=== PATIENT | female | born 1995 | race Caucasian/White ===

== ENCOUNTER → 2018-05-05 00:11 | Observation (INO) ==
[2018-05-04 22:59] LABS: Bilirubin,Urine Small (Negative); Blood,Urine Negative (Negative); Clarity,Urine Clear (Clear); Color,Urine Dark Yellow (Yellow); Glucose,Urine (UA) Normal (Normal); Ketones,Urine 15 mg/dL (Negative); Leukocyte Esterase,Urine Trace (Negative); Nitrite,Urine Negative (Negative); Protein,Urine 30 mg/dL (Neg-Trace); Specific Gravity,Urine 1.024 (1.010-1.025); Urobilinogen,Urine Normal (Normal)
[2018-05-04 23:04] LABS: Bacteria,Urine Few per hpf (None-Few); Hyaline Casts,Urine Few per lpf (None-Few); RBC,Urine 0-3 per hpf (0-3); Squamous Epithelial Cell,Urine Many per lpf (None-Few)
[2018-05-04 23:11] LABS: Amphetamine Screen,Urine Negative ng/mL (Cutoff=1000); Barbiturate Screen,Urine Negative ng/mL (Cutoff=200); Benzodiazepines Screen,Urine Negative ng/mL (Cutoff=200); Cannabinoid Screen,Urine Positive ng/mL (Cutoff = 50); Cocaine Screen,Urine Negative ng/mL (Cutoff= 300); Opiate Screen,Urine Negative ng/mL (Cutoff=300); Phencyclidine Screen,Urine Negative ng/mL (Cutoff=25)
[2018-05-04 23:53] LABS: Gardnerella DNA Not Detected (Not Detect); Trichomonas DNA Not Detected (Not Detect)
[2018-05-04 23:54] LABS: Candida DNA Not Detected (Not Detect)
--- NOTE | 2018-05-04 23:59 | OB/GYN Progress Note ---
Date of Encounter: 05/04/18 Time of Encounter: 23:56 - Assessment and Plan (1) 33 weeks gestation of Current Visit: Yes Status: Acute Follow up with Dr. Amaro as scheduled PTL precautions given Discharge home (2) Vaginal discharge during in third trimester Current Visit: Yes Status: Acute Vaginosis panel negative Nitrazine negative Likely normal increase in discharge during Subjective - Subjective Principal diagnosis: Vaginal discharge during Interval history: Ms. Nunn is a 22 year old at 33 weeks gestation who presents c/o leaking fluid starting today. She reports good movement and denies ctx, vb. She states she fluid is mostly odorless and clear. Last intercourse was more than 48 hours ago. Antepartum ROS: new complaints, loss of fluid, movement normal, no vaginal bleeding, no contractions Objective - Vital Signs Vital Signs: Intake and Output 05/04/18 05/04/18 05/04/18 07:59 15:59 23:59 Other: Weight 75.9 kg Patient Weight 05/04/18 23:59 Weight 75.9 kg - Exam FHR: category 1 Auscultation: bilateral: normal Abdomen: Present: normal appearance, soft, gravid Uterus: Present: normal, firm - Labs Labs: Abnormal lab results Urine Protein 30 mg/dL (Neg-Trace) H 05/04/18 22:48 Urine Ketones 15 mg/dL (Negative) H 05/04/18 22:48 Urine Bilirubin Small (Negative) H 05/04/18 22:48 Ur Leukocyte Esterase Trace (Negative) H 05/04/18 22:48 Urine Microscopic WBC 5-15 per hpf (0-3) H 05/04/18 22:48 Ur Squamous Epith Cells Many per lpf (None-Few) H 05/04/18 22:48 U Marijuana (THC) Screen Positive ng/mL (Cutoff = 50) H 05/04/18 22:48
== END | disposition home or self-care (01) ==
LOC: 1NENULAB
PROVIDERS: ADMIT Obstetrics & Gynecology; ATTEND Obstetrics & Gynecology

== ENCOUNTER 2018-06-12 05:12 | Inpatient (IN) ==
[2018-06-12] MEDS ORDERED: Metoclopramide 10 MG/2 ML VIAL IVP PRN (05:23)
[2018-06-12] MEDS ORDERED: *HR* Nalbuphine 10 MG/ML AMPUL IVP PRN (05:23)
[2018-06-12] MEDS ORDERED: Ondansetron 4 MG/2 ML VIAL IVP PRN (05:23)
[2018-06-12] MEDS ORDERED: Naloxone 0.4 MG/ML INJ IVP PRN (05:23)
[2018-06-12] MEDS ORDERED: Lidocaine 1% 20 ML MDV ID PRN (05:23)
[2018-06-12] MEDS ORDERED: Famotidine 20 MG/2 ML VIAL IVP PRN (05:23)
[2018-06-12] MEDS ORDERED: Ringers Solution, Lactated 1,000 ML ONE (05:27)
[2018-06-12] MEDS ORDERED: Ringers Solution, Lactated 1,000 ML IVC SCH (05:30)
[2018-06-12 05:47] LABS: Basophils # 0.2 K/mcL (0.0-0.2); Eosinophils # 0.3 K/mcL (0.0-0.6); Eosinophils % 1.9 %; Hematocrit 39.3 % (35.3-44.9); Hemoglobin 13.3 g/dL (11.5-15.4); Immature Granulocytes % 2.8 % (0-4); Lymphocytes # 2.9 K/mcL (0.6-4.6); Lymphocytes % 18.1 %; Mean Corpuscular HGB Conc 33.8 g/dL (31.6-35.5); Mean Corpuscular Hemoglobin 30.4 pg (28.0-33.3); Mean Corpuscular Volume 89.9 fL (83.0-100.0); Mean Platelet Volume 10.4 fL (9.4-12.4); Monocytes # 1.1 K/mcL (0.0-1.3); Monocytes % 6.9 %; Neutrophils # 11.1 K/mcL (1.6-8.9); Platelet Count 287 K/mcL (140-400); Red Blood Count 4.37 M/mcL (3.82-4.97); Red Cell Distribution Width 13.2 % (11.5-14.5); Segmented Neutrophils % 69.3 %
[2018-06-12] MEDS ORDERED: Oxytocin 20 units/ LR 1000 mL 20 UNIT/1,000 ML BAG IVC ONE (06:00)
--- NOTE | 2018-06-12 06:30 | OB/GYN Procedure Note ---
Delivery - Delivery Date: 06/12/18 Provider: Ericka Canas Intrapartum events: precipitous labor- <3hr Delivery induction: none Delivery monitor: external FHT, external uterine Anesthesia: local - Infant (s) A Delivery Date: 06/12/18 Delivery Time: 05:57 Presentation: vertex Position: OA Route of delivery: Gender: Female Pounds: 5 Ounces: 14 Weight Gram: 2660 kg at 1 minute: 8 at 5 mins: 9 Shoulder Dystocia: not encountered Specimens collected: cord blood Placenta: spontaneous - Repair Episiotomy: none Laceration Description: Perineal - 2nd Degree - Complications Delivery complications: none Delivery comments: Admitted in spontaneous labor and rapidly progressed to complete. Maternal bearing down efforts to of liveborn female. Vertex delivered OA, shoulders and body easily followed. No nuchal cord or shoulder dystocia encountered. Vigorous placed on maternal abdomen Apgars 8/9. Placenta delivered spontaneously (Eufemia) and complete upon inspection. Fundus massaged until firm and Pitocin started per policy. Deep perineal laceration noted, Dr. Reed called to repair and evaluate perineal laceration. - Disposition Mom disposition: stable in LDR [place] disposition: stable in LDR
--- NOTE | 2018-06-12 06:44 | OB/GYN History & Physical ---
Date of Encounter: 06/12/18 Time of Encounter: 06:31 Assessment and Plan (1) 38 weeks gestation of Current visit: Yes Status: Acute (2) Spontaneous onset of labor Current visit: Yes Status: Acute Admitted to labor and delivery Vaginal delivery of Routine care History of Present Illness HPI: Ms. Nunn is a 22 year old female 38+6 gestation presents L&D in spontaneous labor. Patient with contractions and spontaneous rupture membranes at home. Reports good movement. care with Dr. Amaro, complicated with tick bite and infection. Past medical history includes cellulitis infection and arm with DVT, anxiety and depression, hemachromatosis, Labs: AB+, rubella varicella immune, GBS positive, all other serologies negative Past Med Surg Social Fam HX - Past Medical History Medical history: asthma, DVT, seizures, other Additional medical history: Gum abscess Psychiatric history: anxiety, depression - Past Surgical History Surgical History: other Additional surgical history: T&A, oral surgeries - Social History Smoking Status: Former smoker Smokeless Tobacco Status: No Alcohol use: none Drug use: marijuana - Family History Mother Adopted: No Family Member Ethnicity: Non- Living Status: Still Living Hx Family Cardiac Disorders: Yes (artial septum) Hx Family Respiratory Disorders: No Hx Family Cancer: No Hx Family GI Disorders: No Hx Family Genitourinary Disorders: No Hx Family Endocrine Disorder: No Hx Family Musculoskeletal Disorders: No Hx Family Neuromuscular Disorders: No Hx Family Neurologic Disorders: No Hx Family HEENT Disorders: No Hx Family Autoimmune Disorders: No Hx Family Reproductive Disorders: No Hx Family Psychosocial Disorders: No Hx Family Medical Disorders: (fibromyalgia) Father Family Member Ethnicity: Non- Living Status: Still Living Hx Family Cardiac Disorders: No Hx Family Respiratory Disorders: No Hx Family Cancer: No Hx Family GI Disorders: No Hx Family Genitourinary Disorders: No Hx Family Endocrine Disorder: No Hx Family Musculoskeletal Disorders: No Hx Family Neuromuscular Disorders: No Hx Family Neurologic Disorders: No Hx Family HEENT Disorders: No Hx Family Autoimmune Disorders: No Hx Family Reproductive Disorders: No Hx Family Psychosocial Disorders: No Hx Family Medical Disorders: (Hemachromitosis) Obstetrical History - Pregnancies : 2 Para: 1 Term: 1 : 0 Ab's: 0 Livin Medications and Allergies Albuterol Sulfate [Proair Hfa] 2 puff IH Q6H PRN 05/05/16 [History] Ondansetron HCl [Zofran] 4 mg PO Q8HR PRN 04/30/18 [History] Pnv No.122/Iron/Folic Acid [ Multi Tablet] 1 each PO DAILY 04/30/18 [ History] Ferrous Sulfate [Iron] 1 tab PO DAILY 05/04/18 [History] 3 Allergy/AdvReac Type Severity Reaction Status Date / Time ampicillin [From Unasyn] Allergy Rash Verified 06/12/18 05:21 chlorhexidine Allergy Rash Verified 06/12/18 05:21 citalopram [From Celexa] Allergy Agitated Verified 06/12/18 05:21 sulbactam [From Unasyn] Allergy Rash Verified 06/12/18 05:21 Exam - Constitutional Constitutional: well developed, well nourished, no acute distress, average body habitus - Neck Neck exam: full ROM - Lungs Respiratory exam: CTAB - Cardiovascular Cardiovascular exam: RRR - Abdomen Abdomen: Present: gravid, non tender - Extremities Extremities exam: normal capillary refill, normal inspection Results Result Diagrams: 06/12/18 05:29 Abnormal lab results WBC 16.0 K/mcL (4.3-11.1) H 06/12/18 05:29 Neutrophils # 11.1 K/mcL (1.6-8.9) H 06/12/18 05:29 All other labs normal.
--- NOTE | 2018-06-12 07:18 | OB/GYN History & Physical ---
Addendum entered and electronically signed by Suhail Grace DO 06/12/18 14:08: Take Factor V Leiden off of Problem list of patient as this was subjectively reported by the patient. Add diagnosis of Hx of VTE. Take Factor V Leiden off of plan as well. Original Note: Date of Encounter: 06/13/18 Time of Encounter: 05:18 Assessment and Plan (1) Spontaneous onset of labor Current visit: Yes Status: Acute Admit to labor and delivery Spontaneous vaginal delivery anticipated Continuous monitoring GBS: positive Consult to Heme/Onc for management of Hx of Factor V Leiden in the setting of provoked VTE and Hemochromatosis gene. Dr Jade stated to provide patient with 40 mg of Lovenox for prophylactic therapy. Stated that he would agree to accept consult of patient on the floor. (2) 38 weeks gestation of Current visit: Yes Status: Acute (3) Factor V Leiden Current visit: Yes Status: Acute (4) Hemochromatosis carrier Current visit: Yes Status: Acute History of Present Illness Chief complaint: SROM HPI: Ms. Nunn is a 22 year old female Ms. Nunn is a 22 year old female 38+6 gestation presents L&D in spontaneous labor. Patient with contractions and spontaneous rupture membranes at home. Reports good movement. care with Dr. Amaro. Patient reports history of factor V Leiden deficiency. 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 Reports not having any other blood clots. Reports extensive anticoagulation for one year and a half. Has not been on any anticoagulation since. Has not been on any anticoagulation throughout her . Patient also reports history of hemachromatosis. 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 Reports never requiring a phlebotomy. Labs: AB+, rubella varicella immune, GBS positive, all other serologies negative Past Med Surg Social Fam HX - Past Medical History Medical history: asthma, DVT, seizures, other Additional medical history: Gum abscess Psychiatric history: anxiety, depression - Past Surgical History Surgical History: other Additional surgical history: T&A, oral surgeries - Social History Smoking Status: Former smoker Smokeless Tobacco Status: No Alcohol use: none Drug use: marijuana - Family History Mother Adopted: No Family Member Ethnicity: Non- Living Status: Still Living Hx Family Cardiac Disorders: Yes (artial septum) Hx Family Respiratory Disorders: No Hx Family Cancer: No Hx Family GI Disorders: No Hx Family Genitourinary Disorders: No Hx Family Endocrine Disorder: No Hx Family Musculoskeletal Disorders: No Hx Family Neuromuscular Disorders: No Hx Family Neurologic Disorders: No Hx Family HEENT Disorders: No Hx Family Autoimmune Disorders: No Hx Family Reproductive Disorders: No Hx Family Psychosocial Disorders: No Hx Family Medical Disorders: (fibromyalgia) Father Family Member Ethnicity: Non- Living Status: Still Living Hx Family Cardiac Disorders: No Hx Family Respiratory Disorders: No Hx Family Cancer: No Hx Family GI Disorders: No Hx Family Genitourinary Disorders: No Hx Family Endocrine Disorder: No Hx Family Musculoskeletal Disorders: No Hx Family Neuromuscular Disorders: No Hx Family Neurologic Disorders: No Hx Family HEENT Disorders: No Hx Family Autoimmune Disorders: No Hx Family Reproductive Disorders: No Hx Family Psychosocial Disorders: No Hx Family Medical Disorders: (Hemachromitosis) Obstetrical History - Pregnancies : 2 Para: 1 Term: 1 : 0 Ab's: 0 Livin Medications and Allergies Albuterol Sulfate [Proair Hfa] 2 puff IH Q6H PRN 05/05/16 [History] Ondansetron HCl [Zofran] 4 mg PO Q8HR PRN 04/30/18 [History] Pnv No.122/Iron/Folic Acid [ Multi Tablet] 1 each PO DAILY 04/30/18 [ History] Ferrous Sulfate [Iron] 1 tab PO DAILY 05/04/18 [History] 3 Allergy/AdvReac Type Severity Reaction Status Date / Time ampicillin [From Unasyn] Allergy Rash Verified 06/12/18 05:21 chlorhexidine Allergy Rash Verified 06/12/18 05:21 citalopram [From Celexa] Allergy Agitated Verified 06/12/18 05:21 sulbactam [From Unasyn] Allergy Rash Verified 06/12/18 05:21 Review of System OB All systems PM: reviewed and no additional remarkable complaints except as stated - Constitutional Constitutional ROS IM: no fever(s) Exam - Constitutional Constitutional: well developed, well nourished, no acute distress - HEENT HEENT: Normocephaly - Lungs Respiratory exam: CTAB - Cardiovascular Cardiovascular exam: RRR, +S1, +S2 - Abdomen Abdomen: Present: gravid, non tender - Extremities Extremities exam: normal inspection Results Result Diagrams: 06/13/18 02:19 Abnormal lab results WBC 16.0 K/mcL (4.3-11.1) H 06/12/18 05:29 Neutrophils # 11.1 K/mcL (1.6-8.9) H 06/12/18 05:29 All other labs normal. - Attending Attestation Chance Reed MD , FACOG
[2018-06-12 07:29] LABS: Amphetamine Screen,Urine Negative ng/mL (Cutoff=1000); Barbiturate Screen,Urine Negative ng/mL (Cutoff=200); Benzodiazepines Screen,Urine Negative ng/mL (Cutoff=200); Cannabinoid Screen,Urine Negative ng/mL (Cutoff = 50); Cocaine Screen,Urine Negative ng/mL (Cutoff= 300); Opiate Screen,Urine Negative ng/mL (Cutoff=300); Phencyclidine Screen,Urine Negative ng/mL (Cutoff=25)
[2018-06-12] MEDS ORDERED: *HR* Enoxaparin 40 MG/0.4 ML SYRINGE SQ ONE ×2 (07:41→10:00)
[2018-06-12] MEDS ORDERED: Oxytocin 20 units/ LR 1000 mL 20 UNIT/1,000 ML BAG IVC SCH (10:00)
[2018-06-12] MEDS ORDERED: Lanolin 7 G OINT...G. TP PRN (10:00)
[2018-06-12] MEDS ORDERED: *HR* HYDROcodone/Acet 5/325 mg TABLET PO PRN (10:00)
[2018-06-12] MEDS ORDERED: Benzocaine/Menthol 56 GM AEROSOL SPRAY TP PRN (10:00)
[2018-06-12] MEDS ORDERED: Acetaminophen 325 MG TABLET PO PRN (10:00)
[2018-06-12] MEDS: Prenatal Vit/FA 1 EACH TABLET PO SCH (11:33)
--- NOTE | 2018-06-12 13:59 | Oncology Inp Consult Note ---
<Henok Lobato - Last Filed: 06/12/18 16:20> Date of Encounter: 06/12/18 Time of Encounter: 13:58 Assessment and Plan (1) History of DVT (deep vein thrombosis) Status: Acute Assessment and plan: Patient had single provoked upper extremity DVT in the setting of PICC line in place several years ago. No other history of DVT. Patient denies any history of coagulopathy or family history of blood clotting disorders. Given that the patient's DVT was clearly provoked by a PICC line and has no other clotting history, we will not start the patient on prophylactic anticoagulation in the period. (2) Hemochromatosis carrier Status: Acute Assessment and plan: History of C282Y heterozygous mutation - Data of Consult Patient: known to practice within the last 3 years Consult date: 06/12/18 Requesting Physician: Ericka Canas CNM Primary Care Provider: Anthony Cedillo MD - Consult Narrative Reason for consult: hx of DVT/post History of present illness: Ms. Nunn is a 22 year old female with history of provoked upper extremity DVT after PICC line, heterozygous C282Y mutation who presented for normal vaginal delivery. Patient reports that she had an uneventful delivery with no bleeding issues. Hematology was consulted due to history of upper extremity DVT after PICC line placement. Patient states that this is the only DVT that she has ever had. She has no other history of clotting issues. She denies family history of clotting disorders. She does report that her father has hemachromatosis. Patient was treated with Xarelto after her upper extremity DVT. She denies any extremity pain, swelling, erythema. She denies chest pain, shortness of breath. Past Med Surg Social Fam HX - Past Medical History Medical history: asthma, DVT, seizures, other Additional medical history: Gum abscess Psychiatric history: anxiety, depression - Past Surgical History Surgical History: other Additional surgical history: T&A, oral surgeries - Social History Smoking Status: Former smoker Smokeless Tobacco Status: No Alcohol use: none Drug use: marijuana - Family History Mother Adopted: No Family Member Ethnicity: Non- Living Status: Still Living Hx Family Cardiac Disorders: Yes (artial septum) Hx Family Respiratory Disorders: No Hx Family Cancer: No Hx Family GI Disorders: No Hx Family Genitourinary Disorders: No Hx Family Endocrine Disorder: No Hx Family Musculoskeletal Disorders: No Hx Family Neuromuscular Disorders: No Hx Family Neurologic Disorders: No Hx Family HEENT Disorders: No Hx Family Autoimmune Disorders: No Hx Family Reproductive Disorders: No Hx Family Psychosocial Disorders: No Hx Family Medical Disorders: (fibromyalgia) Father Family Member Ethnicity: Non- Living Status: Still Living Hx Family Cardiac Disorders: No Hx Family Respiratory Disorders: No Hx Family Cancer: No Hx Family GI Disorders: No Hx Family Genitourinary Disorders: No Hx Family Endocrine Disorder: No Hx Family Musculoskeletal Disorders: No Hx Family Neuromuscular Disorders: No Hx Family Neurologic Disorders: No Hx Family HEENT Disorders: No Hx Family Autoimmune Disorders: No Hx Family Reproductive Disorders: No Hx Family Psychosocial Disorders: No Hx Family Medical Disorders: (Hemachromitosis) Medications and Allergies Albuterol Sulfate [Proair Hfa] 2 puff IH Q6H PRN 05/05/16 [History] Ondansetron HCl [Zofran] 4 mg PO Q8HR PRN 04/30/18 [History] Pnv No.122/Iron/Folic Acid [ Multi Tablet] 1 each PO DAILY 04/30/18 [ History] Ferrous Sulfate [Iron] 1 tab PO DAILY 05/04/18 [History] 3 Allergy/AdvReac Type Severity Reaction Status Date / Time ampicillin [From Unasyn] Allergy Rash Verified 06/12/18 05:21 chlorhexidine Allergy Rash Verified 06/12/18 05:21 citalopram [From Celexa] Allergy Agitated Verified 06/12/18 05:21 sulbactam [From Unasyn] Allergy Rash Verified 06/12/18 05:21 All systems: reviewed and no additional remarkable complaints except as stated Oncology - Exam - Constitutional Vitals: Temp Pulse Resp BP Pulse Ox 97.6 F 68 16 110/64 99 06/12/18 10:09 06/12/18 10:09 06/12/18 10:09 06/12/18 10:09 06/12/18 10:09 General appearance: cooperative, no acute distress - Head Head exam: Present: atraumatic, normal inspection, normocephalic - Respiratory Respiratory exam: Present: CTAB. Absent: rales, rhonchi, wheezes - Cardiovascular Cardiovascular exam: Present: RRR. Absent: diastolic murmur, systolic murmur - GI/Abdominal GI/Abdominal exam: Present: normal bowel sounds, soft. Absent: tenderness - Extremities Exam Extremities exam: Absent: pedal edema, tenderness - Neurological Exam Neurological exam: Present: alert, oriented X3 - Skin Skin exam: Present: dry, intact, warm Oncology - Results Labs: 3 06/12/18 06/12/18 05:29 05:29 WBC 16.0 H RBC 4.37 Hgb 13.3 Hct 39.3 MCV 89.9 MCH 30.4 MCHC 33.8 RDW 13.2 Plt Count 287 MPV 10.4 Immature Gran % 2.8 Seg Neutrophils % 69.3 Lymphocytes % 18.1 Monocytes % 6.9 Eosinophils % 1.9 Basophils % 1.0 Neutrophils # 11.1 H Lymphocytes # 2.9 Monocytes # 1.1 Eosinophils # 0.3 Basophils # 0.2 Urine Opiates Screen Negative Ur Barbiturates Screen Negative Ur Phencyclidine Scrn Negative Ur Amphetamines Screen Negative U Benzodiazepines Scrn Negative Urine Cocaine Screen Negative U Marijuana (THC) Screen Negative Ur Drug Screen Interp See Below Consult Discharge Plan - Plan Referrals: Anthony Cedillo MD [Primary Care Provider] - <Ulysses Boateng - Last Filed: 06/12/18 16:39> Date of Encounter: 06/12/18 - Data of Consult Requesting Physician: Ericka Canas CNM Primary Care Provider: Anthony Cedillo MD - Consult Narrative History of present illness: Ms. Nunn is a 22 year old female with history of PICC line thrombosis, precipitating event. She does not have any prior thrombotic episodes or family history of thrombosis. She does not need any prophylaxis given her history, after normal vaginal delivery, with planned discharge home tomorrow. Plan of care discussed with patient and family. I examined this patient and my medical decision-making was reviewed with Dr. Henok Lobato. I agree with the documented findings, disposition and treatment plan as described except to the extent set forth below. Oncology - Exam - Constitutional Vitals: Temp Pulse Resp BP Pulse Ox 98.7 F 79 16 128/73 99 06/12/18 15:38 06/12/18 15:38 06/12/18 15:38 06/12/18 15:38 06/12/18 10:09 Oncology - Results Labs: 3 06/12/18 06/12/18 05:29 05:29 WBC 16.0 H RBC 4.37 Hgb 13.3 Hct 39.3 MCV 89.9 MCH 30.4 MCHC 33.8 RDW 13.2 Plt Count 287 MPV 10.4 Immature Gran % 2.8 Seg Neutrophils % 69.3 Lymphocytes % 18.1 Monocytes % 6.9 Eosinophils % 1.9 Basophils % 1.0 Neutrophils # 11.1 H Lymphocytes # 2.9 Monocytes # 1.1 Eosinophils # 0.3 Basophils # 0.2 Urine Opiates Screen Negative Ur Barbiturates Screen Negative Ur Phencyclidine Scrn Negative Ur Amphetamines Screen Negative U Benzodiazepines Scrn Negative Urine Cocaine Screen Negative U Marijuana (THC) Screen Negative Ur Drug Screen Interp See Below - Attending Attestation I examined this patient and my medical decision-making was reviewed with resident physician Dr Henok Lobato. I agree with the documented findings, disposition and treatment plan as described except to the extent set forth below. Inpatient Charges Provider: Dr. Virgen Boateng Consult Charges: [id number]
[2018-06-12] MEDS: Ibuprofen 600 MG TABLET PO PRN (19:11)
[2018-06-13 03:08] LABS: Basophils # 0.1 K/mcL (0.0-0.2); Basophils % 0.7 %; Eosinophils # 0.3 K/mcL (0.0-0.6); Eosinophils % 1.5 %; Hematocrit 35.9 % (35.3-44.9); Hemoglobin 12.4 g/dL (11.5-15.4); Immature Granulocytes % 2.2 % (0-4); Lymphocytes # 3.4 K/mcL (0.6-4.6); Lymphocytes % 18.5 %; Mean Corpuscular HGB Conc 34.5 g/dL (31.6-35.5); Mean Corpuscular Hemoglobin 31.6 pg (28.0-33.3); Mean Corpuscular Volume 91.6 fL (83.0-100.0); Mean Platelet Volume 10.8 fL (9.4-12.4); Monocytes # 1.1 K/mcL (0.0-1.3); Monocytes % 6.1 %; Neutrophils # 13.2 K/mcL (1.6-8.9); Platelet Count 258 K/mcL (140-400); Red Blood Count 3.92 M/mcL (3.82-4.97); Red Cell Distribution Width 13.2 % (11.5-14.5)
[2018-06-13] MEDS: Ibuprofen 600 MG TABLET PO PRN (06:54)
[2018-06-13 08:02] VITALS: BP 122/77
[2018-06-13] MEDS: Prenatal Vit/FA 1 EACH TABLET PO SCH (08:19)
--- NOTE | 2018-06-13 10:29 | Discharge Summary ---
Date of Encounter: 06/13/18 Time of Encounter: 10:26 - Discharge Diagnosis (1) Vaginal delivery Priority: Primary Status: Acute Comments: Pain well controlled with by mouth pain meds Tolerating regular diet Ambulating independently Voiding independently Passing flatus, no BM yet Lochia light Discharge home today (2) Breast feeding status of mother Priority: Secondary Status: Acute Comments: Community resources provided - Discharge Medications Prescriptions: Ibuprofen [Motrin] 600 mg PO Q6HR PRN #30 tablet PRN Reason: Cramping Docusate [Colace] 100 mg PO BID #30 capsule Home Medications: Albuterol Sulfate [Proair Hfa] 2 puff IH Q6H PRN 05/05/16 [History] Pnv No.122/Iron/Folic Acid [ Multi Tablet] 1 each PO DAILY 04/30/18 [ History] Acetaminophen [Tylenol] 650 mg PO Q6HR PRN tablet 06/13/18 [Rx] Benzocaine/Menthol [place] [Dermoplast [place]] 1 appl TP QID PRN aerosol 06/13/18 [Rx] Docusate [Colace] 100 mg PO BID #30 capsule 06/13/18 [Rx] Hydrocortisone/Pramoxine [Epifoam] 1 appl TP TID bottle 06/13/18 [Rx] Ibuprofen [Motrin] 600 mg PO Q6HR PRN #30 tablet 06/13/18 [Rx] Lanolin [Lansinoh] 1 appl TP QID PRN oint...g. 06/13/18 [Rx] Allergies/Adverse Reactions: 3 Allergy/AdvReac Type Severity Reaction Status Date / Time ampicillin [From Unasyn] Allergy Rash Verified 06/12/18 05:21 chlorhexidine Allergy Rash Verified 06/12/18 05:21 citalopram [From Celexa] Allergy Agitated Verified 06/12/18 05:21 sulbactam [From Unasyn] Allergy Rash Verified 06/12/18 05:21 Data Procedures and tests throughout hospitalization: Laboratory Tests 06/12/18 06/12/18 06/13/18 05:29 05:29 02:19 WBC 16.0 H 18.5 H RBC 4.37 3.92 Hgb 13.3 12.4 Hct 39.3 35.9 MCV 89.9 91.6 MCH 30.4 31.6 MCHC 33.8 34.5 RDW 13.2 13.2 Plt Count 287 258 MPV 10.4 10.8 Immature Gran % 2.8 2.2 Seg Neutrophils % 69.3 71.0 Lymphocytes % 18.1 18.5 Monocytes % 6.9 6.1 Eosinophils % 1.9 1.5 Basophils % 1.0 0.7 Neutrophils # 11.1 H 13.2 H Lymphocytes # 2.9 3.4 Monocytes # 1.1 1.1 Eosinophils # 0.3 0.3 Basophils # 0.2 0.1 Urine Opiates Screen Negative Ur Barbiturates Screen Negative Ur Phencyclidine Scrn Negative Ur Amphetamines Screen Negative U Benzodiazepines Scrn Negative Urine Cocaine Screen Negative U Marijuana (THC) Screen Negative Ur Drug Screen Interp See Below Labs on day of discharge: Labs from last 24 hours 06/13/18 02:19 WBC 18.5 H RBC 3.92 Hgb 12.4 Hct 35.9 MCV 91.6 MCH 31.6 MCHC 34.5 RDW 13.2 Plt Count 258 MPV 10.8 Immature Gran % 2.2 Seg Neutrophils % 71.0 Lymphocytes % 18.5 Monocytes % 6.1 Eosinophils % 1.5 Basophils % 0.7 Neutrophils # 13.2 H Lymphocytes # 3.4 Monocytes # 1.1 Eosinophils # 0.3 Basophils # 0.1 Date of admission: 06/12/18 05:12 Primary care physician: Anthony Cedillo MD Consults: 06/12/18 07:28 Consult to Oncology [CONS] Stat Consulting Provider: [facility] Reason for Consult: Hx of hemochromatosis and factor V leiden post Time Notified: 07:29 Call Completed: No 06/12/18 10:00 Consult to Water Treatment Specialist [CONS] Routine Comment: Vaginal delivery, consult needed Discharging clinician: Felicita Wei Anticipated date of discharge: 06/13/18 - Patient Status Disposition: Home, Self-Care Condition: Good Functional capacity at discharge: independent ambulation Overall status at discharge: patient is progressing back to baseline - Discharge Instructions Follow Up With: Anthony Cedillo MD [Primary Care Provider] - Jerod Amaro MD [Partnered Physician] - - Diet and Activity Activity: increase activity as tolerated Diet: regular diet Hospital Course Reason for admission: active labor, IUP at term Delivery: Episiotomy: none Laceration: 2nd degree Other procedures: none complications: none Discharge diagnosis: IUP at term delivered [place] baby: female Time Attestation: Total time spent providing and/or coordinating discharge services: Time Spent: Less than 30 minutes Exam - Constitutional Vitals: Temp Pulse Resp BP Pulse Ox 98.3 F 76 12 122/77 98 06/13/18 08:01 06/13/18 08:01 06/13/18 08:01 06/13/18 08:01 06/13/18 08:01 General appearance IM: A&O X 3 - Respiratory Respiratory exam: Present: CTAB - Cardiovascular Cardiovascular exam IM: Present: RRR, +S1, +S2 - GI/Abdominal GI/Abdominal exam IM: normal bowel sounds, no peritoneal signs - Rectal Rectal exam: deferred - Uterine Tone: Firm Uterus Position: At Umbilicus, Midline - Extremities Exam Extremities exam IM: Present: normal capillary refill, normal inspection, radial pulses palpable and symmetrical - Neurological Exam Neurological exam: alert, CN II-XII intact, normal gait, oriented X3, reflexes normal, no focal deficits, strengths equal and symetr throughout - Psychiatric Additional comments: Patient reports history of depression with first baby. Signs and symptoms of depression reviewed with patient and she verbalizes understanding of when to seek help. - Other Additional findings: Breasts: Soft, nontender; nipples intact without erythema
== END 2018-06-13 11:25 | disposition home or self-care (01) | DRG 560 ==
LOC: 1NENULAB 05:12 → 1NENUOBS 08:21
PROVIDERS: ADMIT Advanced Practice Midwife; ATTEND Advanced Practice Midwife